=== PATIENT | female | born 1995 | race Asian ===

== ENCOUNTER 2018-04-16 19:46 | Emergency (ER) | payer OTHER ==
[~2018-04-16] VITALS: Ht 165.1 cm; Wt 59.0 kg
[2018-04-16 20:59] VITALS: BP 135/85
== END 2018-04-16 21:39 | disposition home or self-care (01) ==
LOC: ER 19:58
DX: J06.9 Acute upper respiratory infection, unspecified (principal); D64.9 Anemia, unspecified; Z60.2 Problems related to living alone